=== PATIENT | female | born 1950 | race Caucasian/White ===

== ENCOUNTER 2017-05-26 07:32 | Day surgery (SDC) | payer MEDICARE ==
[2017-05-26 08:43] VITALS: BMI 19.8
[2017-05-26] MEDS ORDERED: Propofol 10 mg/ml Inj (20 ML) ONE (11:37)
[2017-05-26] MEDS ORDERED: Lactated Ringer's 1,000 ML IV SCH (11:45)
[2017-05-26 12:25] VITALS: TEMP 97; O2SAT 100
[2017-05-26 12:32] VITALS: RESP 20
[2017-05-26 12:37] VITALS: BP 130/70; PULSE 68
== END 2017-05-26 13:05 | disposition home or self-care (01) ==
LOC: C.ENDO 07:32
PROVIDERS: ATTEND Internal Medicine Gastroenterology
DX: K64.1 Second degree hemorrhoids (principal)
CPT/HCPCS: 45378; J2704; J7120